=== PATIENT | female | born 1990 | race American Indian/Alaskan Native ===

== ENCOUNTER 2020-05-04 19:34 | Emergency (ER) | payer SELFPAY | END 2020-05-04 20:40 | disposition left against medical advice (07) | LOC: ED 19:34 | DX: N89.8 Other specified noninflammatory disorders of vagina (principal); Z53.21 Procedure and treatment not carried out due to patient leaving prior to being seen by health care provider ==

== ENCOUNTER 2020-05-05 10:07 | Emergency (ER) | payer SELFPAY ==
[2020-05-05 10:23] VITALS: BP 130/79
--- NOTE | 2020-05-05 10:27 | Emergency Department Report ---
Blank Doc - Documentation Documentation: 29-year-old female that presents with vaginal discomfort and is concerned about STD. This initial assessment/diagnostic orders/clinical plan/treatment(s) is/are subject to change based on patient's health status, clinical progression and re- assessment by fellow clinical providers in the ED. Further treatment and workup at subsequent clinical providers discretion. Patient/guardians urged not to elope from the ED as their condition may be serious if not clinically assessed and managed. Initial orders include: 1- Patient sent to [facility] for further evaluation and treatment 2- UA 3- pelvic exam
== END 2020-05-05 12:12 | disposition left against medical advice (07) ==
LOC: ED 10:07
DX: Z53.21 Procedure and treatment not carried out due to patient leaving prior to being seen by health care provider (principal)